=== PATIENT | male | born 1970 | race Caucasian/White ===

== ENCOUNTER → 2018-10-29 | Outpatient (CLI) | payer OTHER ==
[2018-10-29 17:58] LABS: HEMATOCRIT 41.7 % (42.0-52.0); HEMOGLOBIN 14.2 gm/dL (14.0-18.0); MCH 30.3 pg (26.0-34.0); MCHC 33.9 g/dL (28.0-37.0); MCV 89.3 fL (80.0-100.0); MPV 7.4 fl. (7.2-11.1); RBC 4.68 mil/uL (4.50-6.00); RDW-CV 12.7 % (10.5-14.5); WBC 10.6 thou/uL (4.0-11.0)
== END ==
LOC: M.LAB 17:39
DX: I24.1 Dressler's syndrome (principal)